=== PATIENT | female | born 1950 | race Caucasian/White ===

== ENCOUNTER 2017-08-30 08:34 | Outpatient (CLI) | payer MEDICARE, BC ==
--- NOTE | 2017-09-04 15:24 | MMO ---
SCREENING MAMMOGRAPHY: DATE: 08/30/17. COMPARISON: 05/15/16, 05/07/15. HISTORY: Screening mammography. FINDINGS: The patient's mammogram is interpreted with the assistance of computer-aided detection. Breast parenchyma is composed of scattered fibroglandular densities. Benign intramammary node noted on the right. No dominant mass lesion or architectural distortion. No concerning microcalcification s. IMPRESSION: BI-RADS 2 - benign findings. Annual screening advised. POS: [facility]
== END 2017-08-30 08:35 | disposition home or self-care (01) ==
LOC: MAMMO 08:34
PROVIDERS: ATTEND Family Medicine
DX: Z12.31 Encounter for screening mammogram for malignant neoplasm of breast (principal); Z01.419 Encounter for gynecological examination (general) (routine) without abnormal findings
CPT/HCPCS: 77067; G0202